=== PATIENT | female | born 1960 | race Caucasian/White ===

== ENCOUNTER 2018-10-22 12:41 | Day surgery (SDC) | payer OTHER ==
[~2018-10-22] VITALS: Ht 154.9 cm; Wt 69.8 kg
[~2018-10-22 12:41] MED LIST: NO MEDS.
[2018-10-22 13:37] VITALS: Ht 154.9 cm; Wt 69.8 kg
[2018-10-22 13:47] VITALS: BP 99/57; PULSE 52; RESP 19
--- NOTE | 2018-10-22 14:07 | PREAC ---
Date/Time of Note Date/Time of Note DATE: 10/22/18 TIME: 14:06 Anesthesia Eval and Record Evaluation Time Pre-Procedure Interview DATE: 10/22/18 TIME: 14:06 Age 58 Sex female NPO: 8 hrs Preoperative diagnosis Screening Planned procedure Colonoscopy Past Medical History Past Medical History: None Surgery & Anesthesia Issues No known issue Meds Anticoagulation: No Beta Nava within 24 hr: No Reason Beta Nava not given: Pt. not on B-Nava Reported Medications [No Meds.] No Conflict Check 10/22/18 Meds reviewed: Yes Allergies Coded Allergies: No Known Drug Allergies (Verified Allergy, Unknown, 10/22/18) Allergies Reviewed: Yes Labs/Studies Labs Reviewed: Reviewed by anesthesiologist test: N/A Studies: ECG (n/a), CXR (n/a) Pre-procedure Exam Last vitals Vital Signs Date Temp Pulse Resp B/P (MAP) Pulse Ox O2 O2 Flow FiO2 Time Delivery Rate 10/22/18 97.8 52 19 99/57 (71) 99 Room Air 13:47 Airway: Adequate mouth opening, Adequate thyromental dist Mallampati: Mallampati II Teeth: Normal Lung: Normal Heart: Normal ASA Physical Status ASA physical status: 2 Emergency: None Planned Anesthetic General/MAC: MAC Planned Pain Management Parenteral pain med Pre-operative Attestations Prior to commencing anesthesia and surgery, the patient was re-evaluated, there was verification of: *The patient's identity *The results of appropriate recent lab work and preoperative vital signs *The above evaluation not changing prior to induction *Anesthetic plan, risk benefits, alternative and complications discussed with patient/family; questions answered; patient/family understands, accepts and wishes to proceed. DARYL SALAS MD Oct 22, 2018 14:07
[2018-10-22] MEDS ORDERED: FENTAnyl 50 MCG/ML VIAL ONE (14:38)
[2018-10-22] MEDS ORDERED: MIDAZOLAM 1 MG/ML 2 ML INJ ONE ×2 (14:38)
--- NOTE | 2018-10-22 14:41 | PAC ---
Date/Time of Note Date/Time of Note DATE: 10/22/18 TIME: 14:41 Post-Anesthesia Notes Post-Anesthesia Note Last documented vital signs Vital Signs Date Temp Pulse Resp B/P (MAP) Pulse Ox O2 O2 Flow FiO2 Time Delivery Rate 10/22/18 97.8 52 19 99/57 (71) 99 Room Air 14:37 Activity: WNL Respiratory function: WNL Cardiovascular function: WNL Mental status: Baseline Pain reasonably controlled: Yes Hydration appropriate: Yes Nausea/Vomiting absent: Yes DARYL SALAS MD Oct 22, 2018 14:41
[2018-10-22] MEDS ORDERED: PROPOFOL 40 ML ONE (14:53)
[2018-10-22 15:00] VITALS: BP 101/59; PULSE 48; RESP 16
== END 2018-10-22 15:47 | disposition home or self-care (01) ==
LOC: GIL 12:41
PROVIDERS: ATTEND Internal Medicine Gastroenterology
DX: Z12.11 Encounter for screening for malignant neoplasm of colon (principal); K64.4 Residual hemorrhoidal skin tags; K64.8 Other hemorrhoids
CPT/HCPCS: 45378; J2250; J3010; Z7610